=== PATIENT | female | born 1970 | race Caucasian/White ===

== ENCOUNTER 2020-08-20 13:25 | Outpatient (REF) | payer OTHER, SELFPAY ==
[2020-08-20 14:54] LABS: Anion Gap 12 (12-20); Carbon Dioxide 27 mmol/L (22-29); Chloride 102 mmol/L (96-108); Potassium 4.2 mmol/L (3.3-5.1); Sodium 137 mmol/L (135-145)
[2020-08-23 11:42] LABS: Oxcarbazepine 22.5 mcg/mL (8.0-35.0)
== END 2020-08-20 13:26 | disposition home or self-care (01) ==
LOC: HO.LAB 13:25
PROVIDERS: PCP Internal Medicine; Visit Provider Psychiatry & Neurology Neurology
DX: G40.909 Epilepsy, unspecified, not intractable, without status epilepticus (principal)
CPT/HCPCS: 36415; 80051; 80339

== ENCOUNTER 2022-08-30 10:27 | Outpatient (REF) | payer OTHER, SELFPAY | END 2022-08-30 10:28 | disposition home or self-care (01) | LOC: HO.LAB 10:27 | PROVIDERS: Visit Provider Psychiatry & Neurology Neurology | DX: Z13.89 Encounter for screening for other disorder (principal) ==

== ENCOUNTER 2023-10-18 09:28 | Outpatient (REF) | payer OTHER, SELFPAY ==
[2023-10-18 11:33] LABS: Anion Gap 12 (12-20); Carbon Dioxide 28 mmol/L (22-29); Chloride 104 mmol/L (96-108); Sodium 140 mmol/L (135-145)
== END 2023-10-18 09:29 | disposition home or self-care (01) ==
LOC: HO.LAB 09:28
PROVIDERS: PCP Internal Medicine; Visit Provider Psychiatry & Neurology Neurology
DX: G40.909 Epilepsy, unspecified, not intractable, without status epilepticus (principal)
CPT/HCPCS: 36415; 80051; 80339

== ENCOUNTER 2024-07-23 09:15 | Outpatient (REF) | payer OTHER, SELFPAY ==
--- OUTSIDE RECORDS SUMMARY | 2024-07-23 09:56 | XMS_ITS | Clinical Summary ---
Author Organization [facility] Facility Address [address] [place] [address] Care Team Providers Care Travel Accommodation Inspector Name Role Phone Angelica Pedraza MD Primary Care Provider + Social History Tobacco Use Types Packs/Day Years Used Date Smoking Tobacco: Never Assessed Comments Unknown Sex and Gender Information Value Date Recorded Sex Assigned at Not on file Legal Sex Female 3:35 PM EDT Gender Identity Not on file Sexual Orientation Not on file Plan of Treatment Health Maintenance Due Date Last Done Comments Breast Cancer Screening 1970 Hepatitis B Vaccine (1 of 3 - 19+ 3-dose series) 11/02 Colorectal Cancer Screening: Annual FOBT 2017 Colorectal Cancer Screening: Colonoscopy 2017 Colorectal Cancer Screening: Sigmoidoscopy 2017 Pneumococcal Vaccine: 50+ Years (1 of 1 - PCV) 019 Influenza Vaccine (Season Ended) 2024 Insurance [employer] Dual SNP ([id number]) Care Teams Travel Accommodation Inspector Relationship Specialty Start Date End Date Angelica Pedraza MD [address] [place] [id number] PCP - General Internal Medicine 10/19/23
[2024-07-23 10:57] LABS: Anion Gap 11 (12-20); Carbon Dioxide 26 mmol/L (22-29); Chloride 106 mmol/L (96-108); Sodium 139 mmol/L (135-145)
[2024-07-26 23:13] LABS: Oxcarbazepine 15.7 mcg/mL (8.0-35.0)
== END 2024-07-23 09:16 | disposition home or self-care (01) ==
LOC: HO.LAB 09:15
PROVIDERS: PCP Nurse Practitioner Family; Visit Provider Registered Nurse
DX: G40.909 Epilepsy, unspecified, not intractable, without status epilepticus (principal)
CPT/HCPCS: 36415; 80051; 80339

== ENCOUNTER 2025-01-21 09:58 | Outpatient (AMB) | payer OTHER, SELFPAY ==
--- NOTE | 2025-01-21 10:06 | A.OFFVIS_ITS ---
Intake Visit Reasons: 6m f/u Allergies No Known Allergies Allergy (Verified 01/21/25 10:12) Medication List - Last Reconciled 01/21/25 by Angely Tyler CNP folic acid 1 mg PO oxcarbazepine 300 mg PO BID zonisamide 50 mg PO BID HPI Comments Details: She was doing okay. She was taking zonisamide and oxcarbazepine twice a day, no medication side effects or missed doses. May get a couple black outs for few seconds in 6 month period that can be triggered by stress or lack of sleep. No major seizures. Getting about 1 headache/ month. Pain is usually frontal, throbbing-type, with photophobia and sonophobia. No nausea or vomiting. It is relieved within 15 minutes with Excedrin if she takes medication early enough. If she does not take medication, headache can linger all day. Sleep was up and down. She was now living in [place] community with her dog of over 10+ years. On 07/03/2024, she started to feel lightheaded, had frontal headache, and had few black outs lasting few seconds. May have been triggered by florescent light. Goes to [employer] and does 9+ study, which had low hanging florescent light that has been changed. Lives alone with her dog of over 10 years, who she says can tell when she does not feel well, and gives her comfort and companionship. She had dehydration on 09/08/23, started drinking a lot of water and her sodium was low. On 09/12/23, she was admitted to [facility] with sodium 122 and 136 the next day after saline. Her Oxcarb was reduced to 300mg bid from 600mg bid. They added Vimpat (Lacosamide) which did not agree with her, so she stopped it. [place] completely wiped out body flip flopped and dizzy on 09/30/23. On 10/04/23, sodium was 123. On 10/14/23, sodium was 135. Had a brief Sz on 10/15/23 for a sec with a sideways head jerk. Very brief blackout in 12/2022. Left upper chest pain. Partial Sz in 02/2020. Periods are irregular and gets blacking out of vision. No LOC. Does not drive around her periods. She has a history of learning disabilities. She had her first seizure at age 5. She had multiple generalized tonic-clonic seizures between the age of 5 and 12, and less frequent generalized seizures between the age of 12 and 19. She has not had any further generalized seizures since then. The seizures were characterized by loss of consciousness, falling, tongue biting, incontinence, and convulsion. She had one previous episode when she was listening to some music in a car when her head started jerking voluntarily to with the right. This has not recurred in several years. Gets blackouts without loss of consciousness several times daily with her periods off and on throughout the day. Gets enough sleep. They are characterized by loss of vision in both eyes with darkening of the vision with a central area of lights like a marble. This lasts several seconds. This can happen in clusters that can go on several times a day to several days in a row. They may be brought on by menstrual cycles either before, during or after throughout. Gets some headaches. [facility] Medical History (Updated 01/21/25 @ 10:11 by Angely Tyler CNP) Hyponatremia Learning disability History of suicide attempt Migraine Epilepsy Family History (Updated 01/21/25 @ 10:10 by Angely Tyler CNP) Mother Headache Review of Systems Const Denies chills, Denies daytime sleepiness, Reports difficulty sleeping, Denies fatigue, Denies fever(s), Denies frequent falls, Reports headache(s), Denies increased appetite, Denies poor appetite, Denies snoring, Denies weakness, Denies weight gain and Denies weight loss Eyes Denies loss of vision ENT Denies vertigo, Reports dizziness, Reports headache(s) and Denies neck pain Card Denies chest pain at rest, Denies chest pain with activity, Denies syncope, Denies leg edema, Denies palpitations, Denies dyspnea and Denies dyspnea on exertion Resp Denies cough, Denies dyspnea, Denies dyspnea on exertion and Denies snoring GI Denies abdominal pain, Denies constipation, Denies heartburn, Denies diarrhea and Denies nausea Denies urinary frequency, Denies urinary incontinence and Denies urinary urgency Musc Denies abnormal gait, Denies back pain, Denies myalgias, Denies arthralgias, Denies neck pain, Denies numbness and Denies tingling Neuro Denies abnormal gait, Denies vertigo, Reports dizziness, Denies syncope, Denies frequent falls, Reports headache(s), Denies lack of coordination, Denies loss of vision, Denies memory loss, Denies numbness, Denies Other visual disturbances, Denies restless legs, Denies seizure-like activity, Denies tingling, Denies paresthesias, Denies tremor(s) and Denies weakness Psych Denies anxiety, Denies depression, Denies auditory hallucinations, Denies memory loss and Denies visual hallucinations Endo Denies fatigue and Denies palpitations Physical Exam Const Other: General Appearance:? normal, in no acute distress. Heart:? S1, S2 normal, no murmurs. Lungs:? clear anteriorly and posteriorly. Musculoskeletal:? normal. Extremities:? no edema. Psych:? alert, oriented, cognitive function intact, cooperative with exam. Neuro Other: Abnormal Neurological Findings:?none.? Mental Status: alert and oriented X 3. Normal attention, orientation, memory, and affect. Cranial Nerves: Pupils are equal, round, and reactive to light. External ocular muscles are intact. Visual winn are full, no ptosis. Face is symmetrical, no facial weakness or droop. Facial sensations are normal. Tongue protrudes in midline. Palate elevates symmetrically. Shoulder shrugging is normal Motor Examination: Normal muscle tone, bulk and strength. No atrophy or fasciculations. No drift of the extended upper extremities. DTR 2+. Plantars are flexor. Sensory Exam: Normal light touch, temperature, pinprick, vibration, and joint- position sensations. Rhomberg sign is absent. Coordination: No ataxia. No titubation. Gait Exam: Within normal limits. Cerebellar Signs: [id number] is okay. Extrapyramidal System: No tremor, rigidity with normal facial expressions. No bradykinesia. No bradyphrenia. Normal arm swing and posture. No propulsion or retropulsion. Speech: Normal. Results Reviewed Results Reviewed: Laboratory Tests 07/23/24 09:40 Sodium 139 Potassium 4.0 Chloride 106 Carbon Dioxide 26 Anion Gap 11 L Oxcarbazepine 15.7 10/18/23 Sodium 140, 11/01/23 Sodium 141. 12/16/14 EEG: Minimally abnormal EEG due to bifrontal sharp transients suggesting mild bifrontal cerebral irritability. Clinical correlation is suggested 12/22/14 MRI shows no abnormality other than slight cerebellar atrophy. Assessment & Plan Assessment & Plan (1) Seizure disorder: Code(s): G40.909 - Epilepsy, unspecified, not intractable, without status epilepticus Category: Medical Plan: Continue zonisamide 50mg 1 capsule twice a day. Continue oxcarbazepine 300mg 1 tablet twice a day. Follow up in 6 months or sooner as needed. (2) Tension headache: Code(s): G44.209 - Tension-type headache, unspecified, not intractable Category: Medical Plan: Headaches were happening about 1x/month, preventive medication was not needed at this time. May continue Excedrin as needed for headaches. Plan Meds tried: Vimpat (side effects) Medications: New oxcarbazepine 300 mg PO BID 180 tabs 1RF 90 days zonisamide 50 mg PO BID 180 caps 1RF 90 days Coding Level of Care Code Est Pt Level 4 (16017) Diagnoses Seizure disorder G40.909 Tension headache G44.209
== END 2025-01-21 10:29 | disposition home or self-care (01) ==
LOC: HO.HSM 09:59
PROVIDERS: PCP Internal Medicine; Referring Provider Internal Medicine; Visit Provider Registered Nurse
DX: G40.909 Epilepsy, unspecified, not intractable, without status epilepticus (principal); G44.209 Tension-type headache, unspecified, not intractable
CPT/HCPCS: 99214

== ENCOUNTER → 2025-01-21 09:58 | Outpatient (BNVA) | payer OTHER, SELFPAY | PROVIDERS: PCP Internal Medicine; Referring Provider Internal Medicine; Visit Provider Registered Nurse | DX: G40.909 Epilepsy, unspecified, not intractable, without status epilepticus (principal); G44.209 Tension-type headache, unspecified, not intractable; Z79.899 Other long term (current) drug therapy | CPT/HCPCS: 99212 ==